=== PATIENT | female | born 1970 | race Caucasian/White ===

== ENCOUNTER → 2017-03-06 | Outpatient (CLI) | payer MEDICAID ==
--- NOTE | 2017-03-06 12:44 | Diagnostic Imaging Report ---
EXAMINATION: Transabdominal and transvaginal pelvic ultrasound. INDICATION: Postmenopausal bleeding. The patient had menopause 4 years ago. FINDINGS: The urinary bladder appears unremarkable. The uterus is mildly enlarged measuring 6.7 x 4 x 4.3 cm and is heterogenous with no discrete focal mass seen. This could correlate with adenomyosis. The endometrial stripe is 4 mm in thickness with no focal mass identified. The ovaries are obscured by bowel gas and are potentially atrophic. IMPRESSION: There is mild enlargement of the uterus with a heterogenous myometrium which could relate to adenomyosis. Dictated by: Dictated on workstation # [id number]
== END ==
LOC: RAD 11:02
PROVIDERS: ATTEND Nurse Practitioner
DX: N95.0 Postmenopausal bleeding (principal)
CPT/HCPCS: 76830; 76856

== ENCOUNTER → 2017-04-25 | Outpatient (CLI) | payer MEDICAID ==
--- NOTE | 2017-04-25 11:56 | Diagnostic Imaging Report ---
PROCEDURE: CT lumbar spine without contrast. TECHNIQUE: Multiple contiguous axial images were obtained through the lumbar spine without the use of intravenous contrast. Sagittal and coronal reformations were then performed. INDICATION: Back pain. FINDINGS: The alignment of the lumbar spine is satisfactory. The vertebral body heights are preserved. There is a rudimentary disc between S1 and S2 levels. There is some mild disc height loss at L5/S1. No pars defect. There is suggestion of a prominent disc herniation at the L5/S1. The facet joints demonstrate xzfwazvq-sa-detyoy arthropathy at L5/S1 and the vjuj-mk-jjchvwvu degenerative changes at L4/5 levels. There is suggestion of from bilateral moderate foramina stenosis at L5/S1, worse on the right side. The other levels demonstrate no significant foraminal stenosis. No definite evidence of significant spinal canal stenosis based on this CT scan without intrathecal contrast. IMPRESSION: Facet arthropathy and disc degenerative change at the L5/S1 with suggestion of a moderate foramina stenosis bilaterally that could be encroaching upon the exiting L5 nerve roots. Dictated by: Dictated on workstation # [id number]
== END ==
LOC: RAD 10:40
PROVIDERS: ATTEND Physician Assistant
DX: M51.36 Other intervertebral disc degeneration, lumbar region (principal); M48.061 Spinal stenosis, lumbar region without neurogenic claudication
CPT/HCPCS: 72131

== ENCOUNTER → 2019-01-03 | Outpatient (CLI) | payer MEDICAID ==
--- NOTE | 2019-01-03 19:53 | Diagnostic Imaging Report ---
INDICATION: Screening. EXAMINATION: Bilateral digital screening mammogram with CAD. 3D tomographic images were obtained and reviewed. The current study was also evaluated with a Computer Aided Detection (CAD) system. COMPARISON: Prior examination from 02/20/2015. FINDINGS: There has been bilateral breast augmentation with implants. The implants are intact. There are otherwise scattered fibroglandular densities, bilaterally. There is no dominant mass, spiculated lesion or suspicious calcification identified. The skin, nipples and axillae are unremarkable. IMPRESSION: Category 2 benign ACR BI-RADS Category 2: Benign findings. Result letter will be mailed to the patient. Note: At least 10% of breast cancer is not imaged by mammography. Dictated by: Dictated on workstation # [id number]
== END ==
LOC: RAD 14:49
PROVIDERS: ATTEND Obstetrics & Gynecology
DX: Z12.31 Encounter for screening mammogram for malignant neoplasm of breast (principal)
CPT/HCPCS: 77067

== ENCOUNTER 2022-05-12 03:45 | Observation (INO) | payer BC, MEDICAID ==
[~2022-05-12] VITALS: Ht 182 cm; Wt 68.0 kg
[2022-05-12] MEDS ORDERED: NS IV 1000 ML 1,000 ML IV SCH (04:45)
[2022-05-12] MEDS ORDERED: KETOROLAC 30 MG/ML VIAL IVP PRN (04:45)
[2022-05-12] MEDS ORDERED: fentaNYL INJ 100 MCG/2 ML AMP IVP PRN (04:45)
--- OUTSIDE RECORDS SUMMARY | 2022-05-12 05:29 | XMS REPORT | Clinical Summary ---
Author Author [facility] Organization [facility] Address Unknown Phone Unavailable Care Team Providers Care Field Service Technician Poultry Name Role Phone Jaxon Galloway MD PCP Source Comments Some departments are not documenting in the electronic medical record. If you d o not see the information that you expected, contact Release of Information in [facility] [employer] Information Management department at [phone] for further assistan ce in locating additional records.[facility] Allergies Not on File Medications Not on file Active Problems Not on file Social History Date Tobacco Use Types Packs/Day Years Used Smoking Tobacco: Never Assessed Sex Assigned at Date Recorded Not on file Last Filed Vital Signs Not on file Plan of Treatment Health Maintenance Due Date Last Done Comments COVID-19 VACCINE (#1) 1971 HIV SCREENING 1986 DTAP/TDAP VACCINES (1 - 1989 Tdap) HEPATITIS C SCREENING 1989 PHYSICAL (COMPREHENSIVE) 1989 EXAM CERVICAL CANCER SCREENING 1992 BREAST CANCER SCREENING 2011 COLORECTAL CANCER 2016 SCREENING SHINGLES RECOMBINANT 2021 VACCINE (1 of 2) DEPRESSION SCREENING 06/12/2021 INFLUENZA VACCINE 01/10/2022 Results Not on filefrom Last 3 Months Care Teams Start Date End Date Field Service Technician Poultry Relationship Specialty 08/30/11 Jaxon Galloway MD PCP - General [address] [place] [address]
--- OUTSIDE RECORDS SUMMARY | 2022-05-12 05:30 | XMS REPORT ---
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 Name Role Phone JAMES CHISHOLM PCP JAMES CHISHOLM PreferredProvider Allergies and Adverse Reactions Name Reaction Notes PENICILLINS Plan of Treatment Planned Activity Comments Planned Date Planned Time Plan/Goal lumbar pain 04/18/2017 3:00 PM lumbar pain 04/18/2017 3:00 PM Medications Active Name Start Date Estimated Completion Date SIG Co mments Linzess 290 mcg oral capsule 01/28/2020 TAKE 1 CAPSU LE BY ORAL ROUTE DAILY cephalexin 500 mg capsule 02/24/2022 take 1 capsule (500 mg) by oral route every 6 hours hydrocodone-acetaminophen 10-325 mg oral tablet 03/24/2022 04/23/2022 TAKE 1 TABLET Q6 hr as needed for pain Name Start Date Expiration Date SIG Comments Tranxene T-Tab 7.5 mg oral tablet 09/14/2011 09/14/2011 take 1 tablet by oral route daily [place] 10-325 mg oral tablet 03/20/2012 04/19/2012 take 1 tablet by oral route every 6 hours as needed for pain for 30 days Prempro 0.3-1.5 mg oral tablet 08/17/2015 11/15/2015 t juan antonio 1 tablet by oral route once daily for 30 days Estrace 0.01 % (0.1 mg/gram) vaginal cream 08/17/2015 016 insert 0.5mg by vaginal route three times a week for two weeks then one time a week there after. clorazepate dipotassium 7.5 mg oral tablet 03/23/201704/22 take 1 tablet (7.5 mg) by oral route 2 times per day for 30 days cephalexin 500 mg oral capsule 06/21/2018 07/01/2018 t juan antonio 1 capsule by oral route 3 times a day for 10 days triamcinolone acetonide 0.1 % topical cream 03/02/202105/14 APPLY A THIN LAYER TO THE AFFECTED AREA(S) BY TOPICAL ROUTE TWICE DAILY Discontinued Name Start Date Discontinued Date SIG Comments Vicodin 5-500 mg oral tablet 12/20/2011 03/20/2012 dionisio e 1 tablet by oral route every 6 hours as needed for pain triamcinolone acetonide 0.1 % topical cream 01/30/201303/09 apply a thin layer to the affected area(s) by topical route 2 times per day clorazepate dipotassium 7.5 mg oral tablet 01/30/20132012 take 0.5-1 tablet by oral route daily as needed deleted clorazepate dipotassium 7.5 mg oral tablet 03/03/2015 016 TAKE 1/2-1 TABLET DAILY NEEDED tramadol 50 mg oral tablet 06/02/2015 08/17/2015 TAKE 1 TABLET BY MOUTH THREE TIMES DAILY (MUST LAST 30 DAYS ) [id number] 3.5-10,000-1 mg/mL-unit/mL-% johnson c (ear) drops,suspension 01/14/2019 07/29/2021 instill 4 drops into affecte d ear(s) by otic route 3 times per day triamcinolone acetonide 0.1 % topical cream 08/13/20192019 APPLY A THIN LAYER TO THE AFFECTED AREA(S) BY TOPICAL ROUTE TWICE DAILY cyclobenzaprine 10 mg oral tablet 01/28/2020 07/29/2021 take 1 tablet (10 mg) by oral route once daily cephalexin 500 mg capsule 11/26/2020 07/29/2021 take 1 capsule (500 mg) by oral route every 6 hours cefuroxime axetil 250 mg oral tablet 07/16/2021 07/29/2021 take 1 tablet (250 mg) by oral route 2 times per day Problem List Description Status Onset Anxiety Active Arthritis unspecified Active 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 Active 02/20/2014 Hip pain, chronic, left Active 02/20/2014 Ankle pain, chronic, left Active 02/20/2014 Menopausal Syndrome with Secondary Amenorrhea Active 08/17/2015 Chronic pain due to trauma Active 10/04/2015 Generalized anxiety disorder Active 10/04/2015 Constipation Active 01/03/2016 Bowel habit changes Active 01/03/2016 Pain management Active 03/30/2016 Acute midline low back pain with bilateral sciatica Active 03/08/2017 Hip pain, bilateral Active 03/08/2017 Mixed hyperlipidemia Active 04/02/2017 Constipation due to opioid therapy Active 08/12 Vital Signs Date Time BP-Sys(mm[Hg] BP-Ashley(mm[Hg]) HR(bpm) RR(rpm) Temp WT HT HC BMI BSA BMI Percentile O2 Sat(%) 12/23/2021 8:36:00 AM 124 mm[Hg] 80 mm[Hg] 78 {beats}/min 18 rpm 98.1 F 146 lbs 99 % 09/17/2021 8:08:00 AM 122 mm[Hg] 80 mm[Hg] 80 {beats}/min 16 rpm 98.2 F 152 lbs 66 in 24.5332 kg/m2 1.7918 m2 96 % 02/23/2021 7:50:00 AM 132 mm[Hg] 84 mm[Hg] 82 {beats}/min 16 rpm 98.2 F 154 lbs 98 % 11/19/2020 7:27:00 AM 130 mm[Hg] 70 mm[Hg] 70 {beats}/min 16 rpm 98.2 F 150 lbs 98 % 08/18/2020 6:57:00 AM 128 mm[Hg] 82 mm[Hg] 80 {beats}/min 16 rpm 98.4 F 157 lbs 98 % 05/22/2020 6:54:00 AM 120 mm[Hg] 72 mm[Hg] 76 {beats}/min 16 rpm 98.4 F 144.5 lbs 98 % 02/25/2020 10:51:00 AM 128 mm[Hg] 70 mm[Hg] 67 {beats}/min 16 rpm 98.2 F 149 lbs 66 in 24.049 kg/m2 1.774 m2 98 % 02/13/2020 9:55:00 AM 122 mm[Hg] 82 mm[Hg] 68 {beats}/min 17 rpm 97.9 F 146.562 lbs 66 in 23.66 kg/m2 1.76 m2 99 % 11/15/2019 7:01:00 AM 118 mm[Hg] 70 mm[Hg] 70 {beats}/min 16 rpm 98.4 F 139 lbs 98 % 08/12/2019 7:45:00 AM 150 mm[Hg] 88 mm[Hg] 74 {beats}/min 16 rpm 98.1 F 145.062 lbs 66 in 23.4135 kg/m2 1.7504 m2 96 % 01/14/2019 8:26:00 AM 140 mm[Hg] 92 mm[Hg] 78 {beats}/min 18 rpm 98.2 F 144 lbs 66 in 23.24 kg/m2 1.74 m2 98 % 10/18/2018 7:32:00 AM 132 mm[Hg] 80 mm[Hg] 82 {beats}/min 18 rpm 98.4 F 144 lbs 98 % 10/18/2018 7:32:00 AM 132 mm[Hg] 80 mm[Hg] 82 {beats}/min 18 rpm 98.4 F 144 lbs 98 % 06/21/2018 9:13:00 AM 136 mm[Hg] 88 mm[Hg] 78 {beats}/min 18 rpm 98.1 F 154 lbs 67 in 24.1196 kg/m2 1.8172 m2 98 % 03/23/2018 7:41:00 AM 138 mm[Hg] 86 mm[Hg] 84 {beats}/min 18 rpm 98.4 F 151 lbs 98 % 12/21/2017 7:45:00 AM 114 mm[Hg] 78 mm[Hg] 78 {beats}/min 18 rpm 98.1 F 155 lbs 67 in 24.2762 kg/m2 1.8231 m2 98 % 09/22/2017 8:12:00 AM 114 mm[Hg] 78 mm[Hg] 82 {beats}/min 16 rpm 97.7 F 145 lbs 67 in 22.71 kg/m2 1.76 m2 97 % 06/27/2017 11:34:00 AM 118 mm[Hg] 70 mm[Hg] 88 {beats}/min 18 rpm 98.2 F 150 lbs 98 % 03/30/2017 8:50:00 AM 122 mm[Hg] 84 mm[Hg] 76 {beats}/min 16 rpm 97.9 F 151 lbs 66 in 24.37 kg/m2 1.79 m2 96 % 03/07/2017 3:00:00 PM 142 mm[Hg] 94 mm[Hg] 80 {beats}/min 16 rpm 98.4 F 153 lbs 67 in 23.9629 kg/m2 1.8113 m2 98 % 12/27/2016 11:30:00 AM 122 mm[Hg] 84 mm[Hg] 80 {beats}/min 16 rpm 98.2 F 152 lbs 98 % 09/19/2016 11:20:00 AM 130 mm[Hg] 84 mm[Hg] 69 {beats}/min 16 rpm 97 F 159 lbs 66 in 25.663 kg/m2 1.8326 m2 99 % 06/23/2016 10:03:00 AM 140 mm[Hg] 88 mm[Hg] 68 {beats}/min 18 rpm 96.6 F 156 lbs 67 in 24.43 kg/m2 1.83 m2 99 % 03/28/2016 10:11:00 AM 132 mm[Hg] 70 mm[Hg] 74 {beats}/min 16 rpm 98.2 F 153 lbs 67 in 23.9629 kg/m2 1.8113 m2 100 % 02/22/2016 10:46:00 AM 136 mm[Hg] 84 mm[Hg] 80 {beats}/min 16 rpm 96.6 F 99 % 01/20/2016 12:01:00 PM 132 mm[Hg] 80 mm[Hg] 74 {beats}/min 16 rpm 97.4 F 150 lbs 66 in 24.2104 kg/m2 1.78 m2 99 % 12/29/2015 8:44:00 AM 128 mm[Hg] 82 mm[Hg] 72 {beats}/min 18 rpm 98.2 F 147 lbs 67 in 23.02 kg/m2 1.78 m2 99 % 09/29/2015 10:19:00 AM 149 mm[Hg] 72 mm[Hg] 72 {beats}/min 16 rpm 98.2 F 155 lbs 66 in 25.0174 kg/m2 1.8094 m2 100 % 08/17/2015 11:21:00 AM 128 mm[Hg] 71 mm[Hg] 73 {beats}/min 98.3 F 14 9 lbs 67 in 23.34 kg/m2 1.79 m2 06/02/2015 1:33:00 PM 118 mm[Hg] 75 mm[Hg] 66 {beats}/min 18 rpm 98.1 F 151 lbs 67 in 23.6497 kg/m2 1.7994 m2 97 % 03/03/2015 11:06:00 AM 112 mm[Hg] 70 mm[Hg] 88 {beats}/min 18 rpm 98.2 F 150 lbs 66 in 24.21 kg/m2 1.78 m2 96 % 12/03/2014 8:06:00 AM 120 mm[Hg] 70 mm[Hg] 66 {beats}/min 18 rpm 98.4 F 124.375 lbs 66 in 20.0744 kg/m2 1.6208 m2 99 % 08/26/2014 10:14:00 AM 105 mm[Hg] 60 mm[Hg] 81 {beats}/min 18 rpm 96.7 F 150 lbs 66 in 24.21 kg/m2 1.78 m2 98 % 05/14/2014 1:26:00 PM 122 mm[Hg] 62 mm[Hg] 88 {beats}/min 22 rpm 97.7 F 150 lbs 66 in 24.2104 kg/m2 1.78 m2 100 % 02/20/2014 8:48:00 AM 136 mm[Hg] 78 mm[Hg] 74 {beats}/min 20 rpm 95.7 F 150 lbs 66 in 24.21 kg/m2 1.78 m2 98 % 01/22/2013 1:51:00 PM 110 mm[Hg] 64 mm[Hg] 72 {beats}/min 16 rpm 98.1 F 141 lbs 66 in 22.7578 kg/m2 1.7258 m2 99 % 01/03/2013 11:03:00 AM 110 mm[Hg] 60 mm[Hg] 78 {beats}/min 16 rpm 97.8 F 140 lbs 66 in 22.60 kg/m2 1.72 m2 98 % 10/16/2012 9:30:00 AM 122 mm[Hg] 64 mm[Hg] 98 {beats}/min 18 rpm 96.7 F 143 lbs 66 in 23.0806 kg/m2 1.738 m2 99 % 08/13/2012 10:24:00 AM 140 mm[Hg] 80 mm[Hg] 80 {beats}/min 143 l bs 66 in 23.08 kg/m2 1.74 m2 05/17/2012 1:54:00 PM 147 mm[Hg] 79 mm[Hg] 83 {beats}/min 141 l bs 66 in 22.7578 kg/m2 1.7258 m2 04/05/2012 3:05:00 PM 137 mm[Hg] 77 mm[Hg] 75 {beats}/min 143 lbs 66 in 23.08 kg/m2 1.74 m2 03/28/2012 9:28:00 AM 110 mm[Hg] 60 mm[Hg] 88 {beats}/min 16 rpm 96.6 F 142 lbs 66 in 22.9192 kg/m2 1.7319 m2 99 % 03/20/2012 10:15:00 AM 128 mm[Hg] 70 mm[Hg] 100 {beats}/min 18 rpm 97 F 142 lbs 66 in 22.92 kg/m2 1.73 m2 99 % 09/14/2011 10:12:00 AM 124 mm[Hg] 84 mm[Hg] 76 {beats}/min 139 l bs 65 in 23.1306 kg/m2 1.7004 m2 Social History Name Description Comments Tobacco Current every day smoker Single Alcohol Current some day Socially SKIL History of Procedures Date Ordered Description Order Status 08/17/2015 12:00 AM ASSAY THYROID STIM HORMONE Reviewed 08/17/2015 12:00 AM ASSAY OF GONADOTROPIN (FSH) Reviewed 08/17/2015 12:00 AM ASSAY OF GONADOTROPIN (LH) Reviewed 08/17/2015 12:00 AM COMPREHEN METABOLIC PANEL Reviewed 12/29/2015 12:00 AM COMPLETE CBC W/AUTO DIFF WBC Returned 12/29/2015 12:00 AM COMPREHEN METABOLIC PANEL Returned 12/29/2015 12:00 AM LIPID PANEL Returned 12/29/2015 12:00 AM ROUTINE VENIPUNCTURE Reviewed 09/19/2016 12:00 AM COMPLETE CBC W/AUTO DIFF WBC Reviewed 09/19/2016 12:00 AM COMPREHEN METABOLIC PANEL Reviewed 09/19/2016 12:00 AM LIPID PANEL Reviewed 09/19/2016 12:00 AM ROUTINE VENIPUNCTURE Reviewed 03/08/2017 12:00 AM MRI LUMBAR SPINE W/O DYE Returned 03/08/2017 12:00 AM X-RAY EXAM OF HIP Returned 03/28/2012 12:00 AM ROUTINE VENIPUNCTURE Reviewed 03/28/2012 12:00 AM COMPLETE CBC W/AUTO DIFF WBC Reviewed 03/28/2012 12:00 AM COMPREHEN METABOLIC PANEL Reviewed 03/28/2012 12:00 AM LIPID PANEL Reviewed 03/30/2017 12:00 AM COMPLETE CBC W/AUTO DIFF WBC Returned 03/30/2017 12:00 AM LIPID PANEL Returned 04/05/2012 12:00 AM ASSAY OF GONADOTROPIN (FSH) Reviewed 04/05/2012 12:00 AM ASSAY OF PROLACTIN Reviewed 05/17/2012 12:00 AM ASSAY OF GONADOTROPIN (FSH) Reviewed 09/22/2017 12:00 AM COMPLETE CBC W/AUTO DIFF WBC Returned 09/22/2017 12:00 AM COMPREHEN METABOLIC PANEL Returned 09/22/2017 12:00 AM LIPID PANEL Returned 08/13/2012 12:00 AM BIOPSY OF UTERUS LINING Reviewed 08/13/2012 12:00 AM ASSAY OF GONADOTROPIN (FSH) Reviewed 01/03/2013 12:00 AM THER/PROPH/DIAG INJ SC/IM Reviewed 01/03/2013 12:00 AM Decadron, Per 1 Mg [facility]# [address]-14 Re viewed 01/03/2013 12:00 AM Depo-Medrol, Per 80 Mg [facility]#5197-9526-66 Reviewed 01/22/2013 12:00 AM THER/PROPH/DIAG INJ SC/IM Reviewed 06/21/2018 12:00 AM COMPLETE CBC W/AUTO DIFF WBC Returned 06/21/2018 12:00 AM COMPREHEN METABOLIC PANEL Returned 06/21/2018 12:00 AM LIPID PANEL Returned 06/21/2018 12:00 AM ROUTINE VENIPUNCTURE Reviewed 06/21/2018 12:00 AM GLYCOSYLATED HEMOGLOBIN TEST Returned 2019 12:00 AM COMPLETE CBC W/AUTO DIFF WBC Returned 2019 12:00 AM COMPREHEN METABOLIC PANEL Returned 2019 12:00 AM LIPID PANEL Returned 2019 12:00 AM ROUTINE VENIPUNCTURE Reviewed 2019 12:00 AM ASSAY THYROID STIM HORMONE Returned 2019 12:00 AM ASSAY OF FREE THYROXINE Returned 02/25/2020 12:00 AM MRI NECK SPINE W/O DYE Returned 05/22/2020 12:00 AM COMPLETE CBC W/AUTO DIFF WBC Returned 05/22/2020 12:00 AM COMPREHEN METABOLIC PANEL Returned 05/22/2020 12:00 AM LIPID PANEL Returned 05/22/2020 12:00 AM ROUTINE VENIPUNCTURE Reviewed 02/23/2021 12:00 AM COMPLETE CBC W/AUTO DIFF WBC Returned 02/23/2021 12:00 AM COMPREHEN METABOLIC PANEL Returned 02/23/2021 12:00 AM LIPID PANEL Returned 02/23/2021 12:00 AM COLLECTION VENOUS BLOOD VENIPUNCTURE Rev iewed 09/17/2021 8:10 AM SCREEN DEPRESSION PERFORMED Reviewed 12/23/2021 9:46 AM SCREEN DEPRESSION PERFORMED Reviewed 02/20/2014 12:00 AM COMPLETE CBC W/AUTO DIFF WBC Reviewed 02/20/2014 12:00 AM COMPREHEN METABOLIC PANEL Reviewed 02/20/2014 12:00 AM LIPID PANEL Reviewed 02/20/2014 12:00 AM ROUTINE VENIPUNCTURE Reviewed 02/20/2014 12:00 AM ASSAY OF FREE THYROXINE Reviewed 02/20/2014 12:00 AM ASSAY THYROID STIM HORMONE Reviewed 12/03/2014 12:00 AM COMPLETE CBC W/AUTO DIFF WBC Reviewed 12/03/2014 12:00 AM COMPREHEN METABOLIC PANEL Reviewed 12/03/2014 12:00 AM LIPID PANEL Reviewed 12/03/2014 12:00 AM ROUTINE VENIPUNCTURE Reviewed Results Summary Date and Description Results 03/28/2012 3:51 PM GLUCOSE 81.0 mg/dLSODIUM 134 .0 mmol/LPOTASSIUM 4.90 mmol/LCHLORIDE 101.0 mmol/LCO2 23.0 mmol/LBUN 4.0 mg/dLCREATININE 0.70 mg/dLSGOT/AST 46.0 IU/LSGPT/ALT 55.0 IU/LALK PHOS 60.0 IU/LTOTAL PROTEIN 7.60 g/dLALBUMIN 4.50 g/dLTOTAL BILI 0.30 mg/dLCALCIUM 9.50 mg/dLAGE 41 GFR NonAA 93 GFR AA 113 eGFR 60 eGFR AA* 60 TRIGLYCERIDES 54.0 mg/dLCHOLESTEROL 177.0 mg/dLHDL 102.0 mg/dLTOT CHOL/HDL 1.7 LDL (CALC) 64.0 mg/dLWBC 5.4 RBC 3.83 HGB 12.90 g/dLHCT 38.0 %MCV 99.0 fLMCH 33.70 pgMCHC 33.90 g/dLRDW SD 47 RDW CV 12.90 %MPV 9.70 fLPLT 309 NRBC# 0.00 NRBC% 0.0 %NEUT 61.30 %%LYMP 26.70 %%MONO 9.90 %%EOS 1.90 %%BASO 0.20 %#NEUT 3.29 #LYMP 1.43 #MONO 0.53 #EOS 0.10 #BASO 0.01 MANUAL DIFF NOT IND 04/05/2012 4:12 PM FSH 32.40 mIU/mL 08/13/2012 11:58 AM FSH 28.90 mIU/mL 02/20/2014 3:38 PM TRIGLYCERIDES 56.0 mg/dLCHOL ESTEROL 180.0 mg/dLHDL 106.0 mg/dLTOT CHOL/HDL 1.7 LDL (CALC) 63.0 mg/dLWBC 5.3 RBC 4.02 HGB 13.80 g/dLHCT 40.10 %MCV 100.0 fLMCH 34.30 pgMCHC 34.40 g/dLRDW SD 45 RDW CV 12.20 %MPV 9.70 fLPLT 277 NRBC# 0.00 NRBC% 0.0 %NEUT 54.20 %%LYMP 33.10 %%MONO 9.90 %%EOS 2.40 %%BASO 0.40 %#NEUT 2.89 #LYMP 1.77 #MONO 0.53 #EOS 0.13 #BASO 0.02 MANUAL DIFF NOT IND FREE T4 0.89 GLUCOSE 86.0 mg/dLSODIUM 139.0 mmol/LPOTASSIUM 4.80 mmol/LCHLORIDE 103.0 mmol/LCO2 27.0 mmol/LBUN 8.0 mg/dLCREATININE 0.70 mg/dLSGOT/AST 22.0 IU/LSGPT/ALT 18.0 IU/LALK PHOS 76.0 IU/LTOTAL PROTEIN 7.70 g/dLALBUMIN 4.50 g/dLTOTAL BILI 0.30 mg/dLCALCIUM 9.40 mg/dLAGE 43 GFR NonAA 92 GFR AA 112 eGFR 60 eGFR AA* 60 TSH 1.360 uIU/mL 12/03/2014 4:22 PM WBC 4.6 RBC 4.11 HGB 13.80 g /dLHCT 40.10 %MCV 98.0 fLMCH 33.60 pgMCHC 34.40 g/dLRDW SD 45 RDW CV 12.60 %MPV 9.50 fLPLT 279 NRBC# 0.00 NRBC% 0.0 %NEUT 42.80 %%LYMP 43.90 %%MONO 8.50 %%EOS 4.40 %%BASO 0.40 %#NEUT 1.96 #LYMP 2.01 #MONO 0.39 #EOS 0.20 #BASO 0.02 MANUAL DIFF NOT IND TRIGLYCERIDES 87.0 mg/dLCHOLESTEROL 183.0 mg/dLHDL 89.0 mg/dLTOT CHOL/HDL 2.1 LDL (CALC) 77.0 mg/dLGLUCOSE 71.0 mg/dLSODIUM 135.0 mmol/LPOTASSIUM 4.50 mmol/LCHLORIDE 99.0 mmol/LCO2 24.0 mmol/LBUN 4.0 mg/dLCREATININE 0.70 mg/dLSGOT/AST 25.0 IU/LSGPT/ALT 25.0 IU/LALK PHOS 84.0 IU/LTOTAL PROTEIN 7.20 g/dLALBUMIN 4.50 g/dLTOTAL BILI 0.60 mg/dLCALCIUM 9.50 mg/dLAGE 44 GFR NonAA 91 GFR AA 110 eGFR >60 mL/min/1.73 m2eGFR AA* >60 08/17/2015 12:25 PM FSH 85.10 mIU/mLLH 36.40 mIU /mLTSH 2.550 uIU/mL 09/19/2016 12:17 PM WBC 5.0 RBC 4.21 HGB 14.10 g /dLHCT 41.60 %MCV 99.0 fLMCH 33.50 pgMCHC 33.90 g/dLRDW SD 43 RDW CV 11.80 %MPV 9.40 fLPLT 271 NRBC# 0.00 NRBC% 0.0 %NEUT 47.0 %%LYMP 39.80 %%MONO 8.0 %%EOS 4.40 %%BASO 0.60 %#NEUT 2.35 #LYMP 1.99 #MONO 0.40 #EOS 0.22 #BASO 0.03 MANUAL DIFF NOT IND TRIGLYCERIDES 232.0 mg/dLCHOLESTEROL 221.0 mg/dLHDL 78.0 mg/dLTOT CHOL/HDL 2.8 LDL (CALC) 97.0 mg/dLGLUCOSE 78.0 mg/dLSODIUM 138.0 mmol/LPOTASSIUM 4.80 mmol/LCHLORIDE 103.0 mmol/LCO2 24.0 mmol/LBUN 9.0 mg/dLCREATININE 0.70 mg/dLSGOT/AST 22.0 IU/LSGPT/ALT 12.0 IU/LALK PHOS 69.0 IU/LTOTAL PROTEIN 7.60 g/dLALBUMIN 4.60 g/dLTOTAL BILI 0.40 mg/dLCALCIUM 9.40 mg/dLAGE 46 GFR NonAA 90 GFR AA 109 eGFR >60 mL/min/1.73 m2eGFR AA* >60 09/17/2021 12:00 AM During the past month, have you been feeling depressed? No During the past month, have you lost interest in usual activity? No 09/17/2021 8:10 AM During the past month, have you been feeling depressed? No During the past month, have you lost interest in usual activity? No 03/24/2022 3:19 PM CQM Tobacco Cessation [facility] Counseling about tobacco use History Of Immunizations Not available. 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 02/20/2014 Hip pain, chronic, left 02/20/2014 Ankle pain, chronic, left 02/20/2014 Menopausal Syndrome with Secondary Amenorrhea 08/17/2015 Chronic pain due to trauma 10/04/2015 Generalized anxiety disorder 10/04/2015 Constipation 01/03/2016 Bowel habit changes 01/03/2016 Colonic Polyps, Personal History of 02/04/16 @ 12 cm-hyperplastic Pain management 03/30/2016 Acute midline low back pain with bilateral sciatica 03/08/20 17 Hip pain, bilateral 03/08/2017 Mixed hyperlipidemia 04/02/2017 Anxiety Disorder Sep 14 2011 10:13AM Pain in joint; left ankle Sep 14 2011 10:13AM Constipation due to opioid therapy 08/13/2019 Headache Mar 20 2012 10:16AM Anxiety Disorder Mar 20 2012 10:16AM General Medical Exam, Adult Mar 20 2012 10:16AM Pain in joint; ankle and foot Mar 20 2012 10:16AM Chronic pain Mar 20 2012 10:16AM Metrorrhagia Mar 28 2012 9:29AM Headache Mar 28 2012 9:29AM 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 - Tylenol Mar 28 2012 9:29AM Menorrhagia Mar 28 2012 9:29AM Chronic pain Mar 28 2012 9:29AM Abnormal Uterine Bleeding Apr 05 2012 3:17PM Abnormal Uterine Bleeding May 17 2012 1:59PM Abnormal Uterine Bleeding Aug 13 2012 10:29AM Sialoadenitis Oct 16 2012 9:30AM Contact Dermatitis Jan 03 2013 11:05AM Contact Dermatitis Jan 22 2013 1:52PM Anxiety Feb 20 2014 9:06AM Arthritis unspecified Feb 20 2014 9:06AM 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 Feb 20 2014 9:06AM Fatigue Feb 20 2014 9:06AM Hip pain, chronic, left Feb 20 2014 8:48AM Ankle pain, chronic, left Feb 20 2014 8:48AM Left hip pain Feb 20 2014 9:39AM Ankle pain, chronic, left May 14 2014 1:26PM Hip pain, chronic, left May 14 2014 1:26PM Anxiety May 14 2014 1:26PM Chronic pain Aug 26 2014 10:15AM Ankle pain, chronic, left Aug 26 2014 10:15AM Hip pain, chronic, left Aug 26 2014 10:15AM 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 Aug 26 2014 10:15AM Anxiety Aug 26 2014 10:15AM Anxiety Dec 03 2014 8:46AM Arthritis unspecified Dec 03 2014 8:46AM 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 Dec 03 2014 8:46AM Fatigue Dec 03 2014 8:46AM Ankle pain, chronic, left Dec 03 2014 8:07AM Hip pain, chronic, left Dec 03 2014 8:07AM 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 Dec 03 2014 8:07AM Anxiety Dec 03 2014 8:07AM Ankle pain, chronic, left Mar 03 2015 11:06AM Hip pain, chronic, left Mar 03 2015 11:06AM Anxiety Mar 03 2015 11:06AM Osteoarthrosis Jun 02 2015 1:33PM Ankle pain, chronic, left Jun 02 2015 1:33PM Hip pain, chronic, left Jun 02 2015 1:33PM Mild Chronic Anxiety Stable Jun 02 2015 1:33PM Menopausal Syndrome with Secondary Amenorrhea Aug 17 2015 11 :28AM Absence Of Menstruation Aug 17 2015 11:28AM Symptomatic Menopausal State Aug 17 2015 11:28AM Chronic pain due to trauma Sep 29 2015 10:19AM Osteoarthrosis, generalized, multiple sites Sep 29 2015 10:1 9AM Generalized anxiety disorder Sep 29 2015 10:19AM Ankle pain, chronic, left Sep 29 2015 10:19AM Hip pain, chronic, left Sep 29 2015 10:19AM Anxiety Sep 29 2015 10:19AM Anxiety Dec 29 2015 1:04PM Arthritis unspecified Dec 29 2015 1:04PM 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 Dec 29 2015 1:04PM Fatigue Dec 29 2015 1:04PM Constipation Dec 29 2015 8:44AM Ankle pain, chronic, left Dec 29 2015 8:44AM Chronic pain due to trauma Dec 29 2015 8:44AM Generalized anxiety disorder Dec 29 2015 8:44AM Hip pain, chronic, left Dec 29 2015 8:44AM Osteoarthritis (arthritis due to wear and tear of joints) 2015 8:44AM Bowel habit changes Dec 29 2015 8:44AM Colon Cancer Screening Jan 20 2016 12:02PM Constipation Jan 20 2016 12:02PM Benign colon polyp Feb 22 2016 10:47AM Ankle pain, chronic, left Mar 28 2016 10:11AM Chronic pain due to trauma Mar 28 2016 10:11AM Generalized anxiety disorder Mar 28 2016 10:11AM Hip pain, chronic, left Mar 28 2016 10:11AM Chronic Pain management Mar 28 2016 10:11AM Ankle pain, chronic, left Jun 23 2016 10:03AM Chronic pain due to trauma Jun 23 2016 10:03AM Generalized anxiety disorder Jun 23 2016 10:03AM Pain in left hip Jun 23 2016 10:03AM Other chronic pain Jun 23 2016 10:03AM Pain management Jun 23 2016 10:03AM Anxiety Sep 19 2016 10:59AM Arthritis unspecified Sep 19 2016 10:59AM assisted medication use Sep 19 2016 10:59AM Fatigue Sep 19 2016 10:59AM Medication management Sep 19 2016 11:21AM Ankle pain, chronic, left Sep 19 2016 11:21AM Chronic pain due to trauma Sep 19 2016 11:21AM Generalized anxiety disorder Sep 19 2016 11:21AM Pain in left hip Sep 19 2016 11:21AM Other chronic pain Sep 19 2016 11:21AM Pain management Sep 19 2016 11:21AM Ankle pain, chronic, left Dec 27 2016 11:31AM Chronic pain due to trauma Dec 27 2016 11:31AM Generalized anxiety disorder Dec 27 2016 11:31AM Pain in left hip Dec 27 2016 11:31AM Other chronic pain Dec 27 2016 11:31AM Pain management Dec 27 2016 11:31AM Lumbago with sciatica, left side Sep 2016 3:00PM Lumbago with sciatica, right side Sep 2016 3:00PM Pain in right hip Sep 2016 3:00PM Pain in left hip Sep 2016 3:00PM Lumbago with sciatica, left side Sep 2016 8:55AM Lumbago with sciatica, right side Sep 2016 8:55AM Pain in right hip Mar 08 2017 8:55AM Pain in left hip Sep 2016 8:55AM Pain in left hip Mar 08 2017 8:55AM Other chronic pain Mar 08 2017 8:55AM Anxiety Mar 30 2017 7:28AM Arthritis unspecified Mar 30 2017 7:28AM 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 Mar 30 2017 7:28AM Fatigue Mar 30 2017 7:28AM Ankle pain, chronic, left Mar 30 2017 8:51AM Chronic pain due to trauma Mar 30 2017 8:51AM Generalized anxiety disorder Mar 30 2017 8:51AM Pain in right hip Mar 30 2017 8:51AM Pain in left hip Mar 30 2017 8:51AM Pain management Mar 30 2017 8:51AM Mild Chronic Mixed hyperlipidemia Mar 30 2017 8:51AM Ankle pain, chronic, left Jun 27 2017 11:35AM Chronic pain due to trauma Jun 27 2017 11:35AM Generalized anxiety disorder Jun 27 2017 11:35AM Pain in left hip Jun 27 2017 11:35AM Other chronic pain Jun 27 2017 11:35AM Pain management Jun 27 2017 11:35AM Anxiety Sep 22 2017 9:07AM Arthritis unspecified Sep 22 2017 9:07AM assisted medication use Sep 22 2017 9:07AM Fatigue Sep 22 2017 9:07AM Ankle pain, chronic, left Sep 22 2017 8:13AM Chronic pain due to trauma Sep 22 2017 8:13AM Generalized anxiety disorder Sep 22 2017 8:13AM Pain in left hip Sep 22 2017 8:13AM Other chronic pain Sep 22 2017 8:13AM Mixed hyperlipidemia Sep 22 2017 8:13AM Pain management Sep 22 2017 8:13AM Dietary Counseling Dec 21 2017 7:46AM Exercise Counseling Dec 21 2017 7:46AM Ankle pain, chronic, left Dec 21 2017 7:46AM Chronic pain due to trauma Dec 21 2017 7:46AM Generalized anxiety disorder Dec 21 2017 7:46AM Pain in left hip Dec 21 2017 7:46AM Other chronic pain Dec 21 2017 7:46AM Pain management Dec 21 2017 7:46AM Ankle pain, chronic, left Mar 23 2018 7:41AM Chronic pain due to trauma Mar 23 2018 7:41AM Generalized anxiety disorder Mar 23 2018 7:41AM Pain in left hip Mar 23 2018 7:41AM Other chronic pain Mar 23 2018 7:41AM Pain management Mar 23 2018 7:41AM Exercise Counseling Mar 23 2018 7:41AM Anxiety Jun 21 2018 8:12AM Arthritis unspecified Jun 21 2018 8:12AM assisted medication use Jun 21 2018 8:12AM Fatigue Jun 21 2018 8:12AM Hyperglycemia Jun 21 2018 8:12AM Ankle pain, chronic, left Jun 21 2018 9:14AM Chronic pain due to trauma Jun 21 2018 9:14AM Generalized anxiety disorder Jun 21 2018 9:14AM Pain in left hip Jun 21 2018 9:14AM Other chronic pain Jun 21 2018 9:14AM Pain management Jun 21 2018 9:14AM Ankle pain, chronic, left Oct 18 2018 7:33AM Chronic pain due to trauma Oct 18 2018 7:33AM Generalized anxiety disorder Oct 18 2018 7:33AM Pain in left hip Oct 18 2018 7:33AM Other chronic pain Oct 18 2018 7:33AM Pain management Oct 18 2018 7:33AM Ankle pain, chronic, left Jan 14 2019 8:27AM Chronic pain due to trauma Jan 14 2019 8:27AM Generalized anxiety disorder Jan 14 2019 8:27AM Pain in left hip Jan 14 2019 8:27AM Other chronic pain Jan 14 2019 8:27AM Pain management Jan 14 2019 8:27AM Anxiety 2019 9:21AM Arthritis unspecified 2019 9:21AM 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 9:21AM Fatigue 2019 9:21AM Hyperglycemia 2019 9:21AM Ankle pain, chronic, left 2019 11:09AM Chronic pain due to trauma 2019 11:09AM Generalized anxiety disorder 2019 11:09AM Pain in left hip 2019 11:09AM Other chronic pain 2019 11:09AM Pain management 2019 11:09AM Ankle pain, chronic, left Aug 12 2019 7:46AM Chronic pain due to trauma Aug 12 2019 7:46AM Generalized anxiety disorder Aug 12 2019 7:46AM Pain in left hip Aug 12 2019 7:46AM Other chronic pain Aug 12 2019 7:46AM Pain management Aug 12 2019 7:46AM Drug induced constipation Aug 12 2019 7:46AM Adverse effect of other opioids, initial encounter Aug 11 7:46AM Ankle pain, chronic, left Nov 15 2019 7:02AM Chronic pain due to trauma Nov 15 2019 7:02AM Generalized anxiety disorder Nov 15 2019 7:02AM Pain in left hip Nov 15 2019 7:02AM Other chronic pain Nov 15 2019 7:02AM Pain management Nov 15 2019 7:02AM Drug induced constipation Nov 15 2019 7:02AM Adverse effect of other opioids, initial encounter Nov 14 7:02AM Ankle pain, chronic, left Sep 3 2019 9:56AM Chronic pain due to trauma Sep 3 2019 9:56AM Drug induced constipation Sep 3 2019 9:56AM Adverse effect of other opioids, initial encounter Sep 3 9:56AM Generalized anxiety disorder Sep 3 2019 9:56AM Pain in right hip Sep 3 2019 9:56AM Pain in left hip Sep 3 2019 9:56AM Pain management Sep 3 2019 9:56AM Neck pain Sep 15 2019 9:52AM Anesthesia of skin Sep 15 2019 9:52AM Paresthesia of skin Sep 15 2019 9:52AM Cervical neck pain with evidence of disc disease Sep 15 2019 10:53AM Anesthesia of skin Sep 15 2019 10:53AM Paresthesia of skin Sep 15 2019 10:53AM Ankle pain, chronic, left May 22 2020 7:02AM Chronic pain due to trauma May 22 2020 7:02AM Drug induced constipation May 22 2020 7:02AM Adverse effect of other opioids, initial encounter May 22 7:02AM Generalized anxiety disorder May 22 2020 7:02AM Pain in right hip May 22 2020 7:02AM Pain in left hip May 22 2020 7:02AM Pain management May 22 2020 7:02AM Anxiety May 22 2020 9:14AM Arthritis unspecified May 22 2020 9:14AM assisted medication use May 22 2020 9:14AM Fatigue May 22 2020 9:14AM Hyperglycemia May 22 2020 9:14AM Medication management May 22 2020 7:02AM Ankle pain, chronic, left Aug 18 2020 7:00AM Chronic pain due to trauma Aug 18 2020 7:00AM Drug induced constipation Aug 18 2020 7:00AM Adverse effect of other opioids, initial encounter Aug 18 7:00AM Generalized anxiety disorder Aug 18 2020 7:00AM Pain in right hip Aug 18 2020 7:00AM Pain in left hip Aug 18 2020 7:00AM Pain management Aug 18 2020 7:00AM Medication management Aug 18 2020 7:00AM Medication refill Aug 18 2020 7:00AM Ankle pain, chronic, left Nov 19 2020 7:28AM Chronic pain due to trauma Nov 19 2020 7:28AM Drug induced constipation Nov 19 2020 7:28AM Adverse effect of other opioids, initial encounter Nov 19 7:28AM Generalized anxiety disorder Nov 19 2020 7:28AM Pain in right hip Nov 19 2020 7:28AM Pain in left hip Nov 19 2020 7:28AM Pain management Nov 19 2020 7:28AM Medication refill Nov 19 2020 7:28AM Ankle pain, chronic, left Sep 2020 7:52AM Chronic pain due to trauma Sep 2020 7:52AM Drug induced constipation Sep 2020 7:52AM Adverse effect of other opioids, initial encounter Sep 7:52AM Generalized anxiety disorder Sep 2020 7:52AM Pain in right hip Sep 2020 7:52AM Pain in left hip Sep 2020 7:52AM Pain management Sep 2020 7:52AM Medication refill Sep 2020 7:52AM Anxiety Sep 2020 7:54AM Arthritis unspecified Sep 2020 7:54AM 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 Sep 2020 7:54AM Fatigue Sep 2020 7:54AM Hyperglycemia Sep 2020 7:54AM Routine adult health maintenance Feb 23 2021 7:52AM Medication refill Jun 22 2021 11:32AM Pain management Jun 22 2021 11:32AM Lumbago with sciatica, left side Jun 22 2021 11:32AM Lumbago with sciatica, right side Jun 22 2021 11:32AM Ankle pain, chronic, left Sep 17 2021 8:10AM Chronic pain due to trauma Sep 17 2021 8:10AM Drug induced constipation Sep 17 2021 8:10AM Adverse effect of other opioids, initial encounter Sep 17 8:10AM Generalized anxiety disorder Sep 17 2021 8:10AM Pain in right hip Sep 17 2021 8:10AM Pain in left hip Sep 17 2021 8:10AM Pain management Sep 17 2021 8:10AM Medication refill Sep 17 2021 8:10AM Routine adult health maintenance Sep 17 2021 8:10AM Ankle pain, chronic, left Dec 23 2021 8:37AM Chronic pain due to trauma Dec 23 2021 8:37AM Drug induced constipation Dec 23 2021 8:37AM Adverse effect of other opioids, initial encounter Dec 23 8:37AM Generalized anxiety disorder Dec 23 2021 8:37AM Pain in right hip Dec 23 2021 8:37AM Pain in left hip Dec 23 2021 8:37AM Pain management Dec 23 2021 8:37AM Medication refill Dec 23 2021 8:37AM Routine adult health maintenance Dec 23 2021 8:37AM Medication refill Mar 24 2022 3:19PM Pain management Mar 24 2022 3:19PM Chronic pain due to trauma Mar 24 2022 3:19PM Ankle pain, chronic, left Mar 24 2022 3:19PM Pain in left hip Mar 24 2022 3:19PM Other chronic pain Mar 24 2022 3:19PM Payers Insurance Name Company Name Plan Name Plan Number Policy Number Kyle cy Group Number Start Date [employer] Better [employer] - RHC [employer] - RHC [id number] N/A [employer] - CMFHP [employer] -CMFHP [id number] N/A [employer] - RHC - CMFHP [employer] - RHC - CMFHP [id number] N/A [employer] [place] [employer] [place] [id number] [place] [employer] [place] [employer] [id number] N/[place] [employer] [place] [employer] [place] [id number] N/A History of Encounters Visit Date Visit Type Provider 03/24/2022 Office visit JAMES GLORIA 12/23/2021 Office visit JAMES GLORIA 09/17/2021 Office visit JAMES GLORIA 06/22/2021 Office visit JAMES GLORIA 02/23/2021 Office visit JAMES GLORIA 11/19/2020 Office visit JAMES GLORIA 08/18/2020 Office visit JAMES GLORIA 05/22/2020 Office visit JAMES GLORIA 02/25/2020 Office visit JAMES GLORIA 02/13/2020 Office visit JAMES GLORIA 11/15/2019 Office visit JAMES GLORIA 08/12/2019 Office visit JAMES GLORIA 2019 Office visit JAMES GLORIA 01/14/2019 Office visit JAMES GLORIA 10/18/2018 Office visit JAMES GLORIA 06/21/2018 Office visit JAMES GLORIA 03/23/2018 Office visit JAMES GLORIA 12/21/2017 Office visit JAMES GLORIA 09/22/2017 Office visit JAMES GLORIA 06/27/2017 Office visit JAMES CHISHOLM PA 03/30/2017 Office visit JAMES CHISHOLM PA 03/07/2017 Office visit JAMES CHISHOLM PA 12/27/2016 Office visit JAMES CHISHOLM PA 09/19/2016 Voided JAMES CHISHOLM PA 09/19/2016 Office visit JAMES CHISHOLM PA 06/23/2016 Office visit JAMES CHISHOLM PA 03/28/2016 Office visit JAMES GLORIA 02/22/2016 Office visit James Lopez MD 02/04/2016 [facility] James Lopez MD 01/20/2016 Office visit James Lopez MD 12/29/2015 Office visit JAMES CHISHOLM PA 09/29/2015 Office visit JAMES GLORIA 08/17/2015 Office visit Diane stover APRN 06/02/2015 Office visit JAMES CHISHOLM PA 03/03/2015 Office visit JAMES GLORIA 02/23/2015 Records Request Ermias Moran DO 12/03/2014 Office visit JAMES CHISHOLM PA 08/26/2014 Office visit JAMES CHISHOLM PA 05/14/2014 Office visit JAMES CHISHOLM PA 02/20/2014 Office visit JAMES CHISHOLM PA 01/22/2013 Office visit JAMES CHISHOLM PA 01/03/2013 Office visit JAMES CHISHOLM PA 10/16/2012 Office visit JAMES GLORIA 08/13/2012 Procedures Kb Quiroz MD 05/17/2012 Office visit Kb Quiroz MD 04/05/2012 Office visit Kb Quiroz MD 03/28/2012 Office visit JAMES CHISHOLM PA 03/20/2012 Office visit JAMES CHISHOLM PA 09/14/2011 Office visit JAMES GLORIA
[2022-05-12 07:39] VITALS: BP 132/72
--- NOTE | 2022-05-12 11:27 | Short Stay Summary-Hospitalist ---
History of Present Illness HPI/Chief Complaint Pt is a 52yoCF with a PMH of salivary gland infection and recurrent dental infections who presented to OSH due to mouth and tongue swelling. She has seen Dr Stern in the past for this and was to get her teeth removed and then follow up with Dr Stern. She was unable to get her dental work done as the facility had a water line break and then she started to get ill. She started taking some left over abx she had at home but it continued to worsen so decided to go to the ER for evaluation, She was given steroids and IV abx and transferred here for ENT evaluation. She reports being near her baseline now and feeling much better. Source: patient Date Seen 05/12/22 Time Seen by a Provider: 10:30 Attending Physician James Villanueva PCP Admitting Physician: Michael Castaneda MD Attending Physician: Michael Castaneda MD Referring Physician Date of Admission May 12, 2022 at 04:15 Home Medications & Allergies Home Medications Reviewed patient Home Medication Reconciliation performed by pharmacy medication reconciliations screening technician and/or nursing. Patients Allergies have been reviewed. Allergies Allergies Coded Allergies Penicillins (Verified Allergy, Unknown, 05/12/22) Past Gjhyvfy-Eiuxzj-Vkrqge Hx Patient Social History Tobacco Use?: Yes Tobacco type used: Cigarettes Smoking Status: Current Everyday Smoker Smokeless Tobacco Frequency: Never a User Use of E-Cig and/or Vaping dev: No Substance use?: No Alcohol Use?: Yes Alcohol type: Beer Alcohol Frequency: Daily Additional Alcohol Comments: 6-7 BEERS Pt feels they are or have been: No Current Status Advance Directives: No Communicates: Verbally Primary Language: Yoruba Preferred Spoken Language: Yoruba Is interpretation needed?: No Sensory deficits: Speech impairment Implanted or Applied Medical D: Other Family Medical History Reviewed Nursing Family Hx No Pertinent Family Hx Review of Systems Constitutional: No chills, No fever EENTM: no symptoms reported Respiratory: No cough, No short of breath Cardiovascular: No chest pain, No edema Gastrointestinal: no symptoms reported Genitourinary: no symptoms reported Musculoskeletal: no symptoms reported Skin: no symptoms reported Psychiatric/Neurological: No Symptoms Reported Physical Exam Physical Exam Vital Signs Vital Signs - First Documented 05/12/22 05/12/22 04:20 07:39 Temp 36.5 Pulse 86 Resp 20 B/P (MAP) 132/72 (92) Pulse Ox 96 O2 Delivery Room Air Capillary Refill : Height, Weight, BMI Height: '" Weight: lbs. oz. kg; 20.52 BMI Method: General Appearance: No Apparent Distress, WD/WN HEENT: PERRL/EOMI, Moist Mucous Membranes, Other (poor dentition) Neck: Normal Inspection, Supple Respiratory: Lungs Clear, No Accessory Muscle Use, No Respiratory Distress Cardiovascular: Regular Rate, Rhythm, No JVD, No Murmur Gastrointestinal: Normal Bowel Sounds, Non Tender, Soft Extremity: Normal Capillary Refill, No Calf Tenderness, No Pedal Edema Neurologic/Psychiatric: Alert, Oriented x3, Normal Mood/Affect Results Results/Procedures Labs Patient resulted labs reviewed. Imaging: Reviewed Imaging Report (from OSH) Short Stay Diagnosis Discharge Diagnosis-Short Stay Admission Diagnosis Salivary gland infection Final Discharge Diagnosis Salivary gland infection Conclusion Plan Salivary gland infection edema nearly resolved with IV abx and steroids Doing much better Seen in consultation by Dr Stern, appreciate recs Will DC home with oral abx and steroids Needs outpatient follow up for tooh extraction and then surgery with Dr Stern Diagnosis/Problems Diagnosis/Problems (1) Salivary gland infection VY DIEZ MD May 12, 2022 11:27
--- NOTE | 2022-05-12 11:28 | Discharge Inst-Simple/Standard ---
Discharge Inst-Standard Discharge Medications New, Converted or Re-Newed RX: RX on Chart (Levaquin and Prednisone written by Dr Stern and on chart) Patient Instructions/Follow Up Plan of Care/Instructions/FU: Please continue to take your medications as written. Please follow up with your primary care doctor to follow up this hospital stay. Activity as Tolerated: Yes Discharge Diet: No Restrictions Return to The Hospital For: Chest pain, shortness of breath, fever, weakness, if you feel you are getting worse. VY DIEZ MD May 12, 2022 11:28
[2022-05-12] MEDS ORDERED: HYDR-3820 PO (11:48)
[2022-05-12] MEDS ORDERED: CEPH500T PO (11:48)
[2022-05-12 12:04] VITALS: BP 148/69
[2022-05-12] MEDS ORDERED: metroNIDAZOLE 500MG/100ML IVPB 100 ML IV SCH (13:30)
[2022-05-13] MEDS ORDERED: cefTRIAXone 1 GM PRE-MIX 50 ML IV SCH (01:30)
--- NOTE | 2022-05-14 12:46 | CONSULTATION REPORT ---
ENT CONSULT Room 413. REASON FOR CONSULT: Swollen right neck. HISTORY OF PRESENT ILLNESS: The patient was transferred to this hospital from [place] with an acute right swelling of the submandibular gland. She had swelling of the tongue and had been on Keflex, which she had at home for the last several days. She presented to the ER in [place] where a CT of the neck was performed. It revealed swelling on the right neck as well as asymmetry at the tongue on the right. She was transferred for higher acuity of care. She since being admitted has received antibiotics and steroids. With that, her symptoms have basically completely resolved. She is back to her baseline. She has a known right submandibular duct stone and has been putting off taking care of it for some time. She has dental problems and is in the process of having her teeth taken care of. Her chart was reviewed as well as the scan was reviewed. PHYSICAL EXAM: GENERAL: She was in no acute distress. She is alert and oriented x3. Communication speech and voice were normal. FACE: She had minimal to no swelling noted externally in the face or neck. EARS: Canals are normal. Tympanic membranes were intact and mobile. NOSE: Normal nasal mucosa. No masses or lesions seen. The oral cavity showed no swelling of the floor of the mouth or the tongue. She has good tongue mobility. The stone was palpable in the right submandibular duct near the hilum of the gland. Pharynx, no mass or ulceration. The tongue base was clear. Larynx, good airway present. No stridor noted. NECK: The right submandibular gland was palpable; however, no abscess was felt. Cranial nerves II-XII are intact. SKIN: Exposed skin surfaces were clear. IMPRESSION: 1. Chronic right submandibular sialolithiasis. 2. POSSIBLE ALLERGIC REACTION TO KEFLEX. RECOMMENDATIONS: Findings were discussed with the patient. Her symptoms have completely resolved. There is a possibility she could have had an allergic reaction to the Keflex as SHE IS ALLERGIC TO PENICILLIN. From my standpoint, she can go home on an 8-day prednisone taper as well as Levaquin 500 mg once a day for 10-14 days. She is going to get her teeth taken care of and once those are taken care of then she will return to our clinic for evaluation and will discuss treatment options, which would include the submandibular gland removal on the right. Job ID: [id number] DocumentID: [id number] Dictated Date: 05/14/2022 07:23:12 Deicer Tester Date: 05/14/2022 12:32:00 Dictated By: KAITLYN YANG MD
== END 2022-05-12 12:10 | disposition home or self-care (01) ==
LOC: INTOOBSV 04:15 → 4TH 04:15
PROVIDERS: ADMIT Internal Medicine; ATTEND Internal Medicine
DX: K11.20 Sialoadenitis, unspecified (principal); K11.5 Sialolithiasis; F17.210 Nicotine dependence, cigarettes, uncomplicated
CPT/HCPCS: 96374; G0378